=== PATIENT | female | born 1985 | race Hispanic/Latino ===

== ENCOUNTER 2016-11-01 19:27 | Emergency (ER) | payer BC ==
[2016-11-01 20:10] VITALS: BP 134/74; PULSE 74; RESP 16; TEMP 98.8; O2SAT 100
[2016-11-01 21:20] LABS: BASO # 0.1 K/uL (0.0-0.2); BASO % 0.4 % (0.0-2.0); EOS # 0.1 K/uL (0.0-0.7); EOS % 0.8 % (0.0-4.0); HEMATOCRIT 40.9 % (34.0-47.0); LYMPH # 2.3 K/uL (1.0-4.3); LYMPH % 16.1 % (20.0-40.0); MEAN CORPUSCULAR HEMOGLOBIN 30.7 pg (27.0-31.0); MEAN CORPUSCULAR HGB CONC 34.1 g/dL (33.0-37.0); MEAN PLATELET VOLUME 9.6 fl (7.2-11.7); MONO # 0.8 K/uL (0.0-0.8); MONO % 5.5 % (0.0-10.0); NEUT % 77.2 % (50.0-75.0); RED CELL DISTRIBUTION WIDTH 12.6 % (11.5-14.5); WHITE BLOOD COUNT 14.3 K/uL (4.8-10.8)
[2016-11-01 21:24] LABS: RBC URINE 4 /hpf (0-3); URINE BACTERIA FEW (<OCC); URINE BILIRUBIN NEGATIVE (NEGATIVE); URINE BLOOD LARGE (NEGATIVE); URINE COLOR STRAW (YELLOW); URINE GLUCOSE (UA) NEG (Normal); URINE KETONE TRACE mg/dL (NEGATIVE); URINE LEUKOCYTE ESTERASE NEG Leu/uL (Negative); URINE PROTEIN NEGATIVE (NEGATIVE); URINE UROBILINOGEN 0.2-1.0 mg/dL (0.2-1.0); WBC URINE < 1 /hpf (0-5)
[2016-11-01 21:28] LABS: ALB/GLOB RATIO 1.3 (1.0-2.1); ALKALINE PHOSPHATASE 47 U/L (38-126); ALT/SGPT 43 U/L (9-52); AST/SGOT 27 U/L (14-36); BILIRUBIN,TOTAL 0.4 mg/dl (0.2-1.3); BLOOD UREA NITROGEN 9 mg/dl (7-17); CALCIUM 9.6 mg/dL (8.4-10.2); CARBON DIOXIDE 25 mmol/L (22-30); CHLORIDE 104 mmol/L (98-107); GFR AFRICAN-AMERICAN > 60; GLUCOSE,RANDOM 102 mg/dL (65-105); SODIUM 140 mmol/l (132-148); TOTAL PROTEIN 7.6 G/DL (6.3-8.2)
[2016-11-01] MEDS ORDERED: Sodium Chloride 0.9% 1,000 ML IV STA (21:47)
--- NOTE | 2016-11-02 00:18 | ED PDOC ---
HPI: Abdomen Time Seen by Provider: 11/01/16 20:46 Chief Complaint (Nursing): Abdominal Pain Chief Complaint (Provider): vaginal bleeding History Per: Patient History/Exam Limitations: no limitations Location Of Pain/Discomfort: RLQ, LLQ Quality Of Discomfort: Cramping Additional Complaint(s): 31yo F in Ed for eval of vaginal cramping and bleeding x 2d 10 weeks . . no fever chills N/V. pt obgyn is alan, appt is for next week saturday. Past Medical History Reviewed: Historical Data, Nursing Documentation, Vital Signs Vital Signs: Last Vital Signs Temp 98.8 F 11/01/16 20:08 Pulse 74 11/01/16 20:08 Resp 16 11/01/16 20:08 BP 134/74 11/01/16 20:08 Pulse Ox 100 11/01/16 20:08 - Medical History PMH: No Chronic Diseases - Family History Family History: States: No Known Family Hx - Allergies Allergies/Adverse Reactions: Allergies Allergy/AdvReac Type Severity Reaction Status Date / Time No Known Allergies Allergy Verified 11/01/16 20:08 Review of Systems ROS Statement: Except As Marked, All Systems Reviewed And Found Negative Constitutional: Negative for: Fever, Chills Gastrointestinal: Positive for: Abdominal Pain. Negative for: Nausea, Vomiting Genitourinary Female: Positive for: Vaginal Discharge, Vaginal Bleeding, Pelvic Pain Physical Exam - Reviewed Nursing Documentation Reviewed: Yes Vital Signs Reviewed: Yes - Physical Exam Appears: Positive for: Non-toxic, No Acute Distress, Uncomfortable Head Exam: Positive for: ATRAUMATIC, NORMAL INSPECTION, NORMOCEPHALIC Skin: Positive for: Normal Color, Warm, DRY Cardiovascular/Chest: Positive for: Regular Rate, Rhythm Respiratory: Positive for: CNT, Normal Breath Sounds Gastrointestinal/Abdominal: Positive for: Normal Exam, Bowel Sounds, Soft Back: Positive for: Normal Inspection Extremity: Positive for: Normal ROM Neurologic/Psych: Positive for: Alert, Oriented - Laboratory Results Result Diagrams: 11/01/16 21:00 11/01/16 21:00 - ECG O2 Sat by Pulse Oximetry: 100 - CT Scan/US US Other Rad Studies (CT/US): Radiology Report Reviewed (miscarriage) - Progress ED Course And Treament: impression ectopic vs miscarriage US and labs Re-evaluation Time: 00:18 Condition: Re-examined (pt continued to pass clots in Ed-given IV NS fluid bolus. ) Medical Decision Making Medical Decision Making: US reults: [facility] Preliminary Radiology Report Call: [phone] assistance Online chat: [email or web address] Patient Name: SANDRA SWAIN (Age): 1985 31 Gender: F Date of Exam: 11/01/2016 Referring Physician: Eilzabeth Garza PA-C # of Images: 49 Ordered As: US OB TRANSVAGINAL Page 1 of 2 EXAM: US First Trimester, Transabdominal CLINICAL HISTORY: 31 years old, female; Signs and symptoms; Lmp or gestational age (in weeks): 04/2017; Other: Heavy bleeding, cramping; ; Additional info: 10week abd pain and bleeding TECHNIQUE: Real-time transabdominal obstetrical ultrasound of the maternal pelvis and a first trimester with image documentation. COMPARISON: No relevant prior studies available. FINDINGS: Gestation: No intrauterine gestational sac. Uterus/cervix: Endometrium: 1.4 cm in thickness, heterogeneous. Closed cervix. Ovaries: Normal ovaries. No adnexal masses. Free fluid: No significant free fluid. IMPRESSION: 1. No intrauterine gestation. DDX: Early IUP, missed , ectopic . 2. Thickened, heterogeneous endometrium. RPOC not excluded. 3. Incidental/non-acute findings are described above. PT given copies of all labs, advised to f.u with appt on Saturday and have Beta HCG repeated in 3d. pt stable understands dx Disposition - Clinical Impression Clinical Impression: Threatened - Patient ED Disposition Is Patient to be Admitted: No Counseled Patient/Family Regarding: Studies Performed, Diagnosis, Need For Followup - Disposition Referrals: Freddy Alan MD [Staff Provider] - Disposition: Routine/Home Disposition Time: 00:20 Condition: STABLE Instructions: Spontaneous Miscarriage (ED)
--- NOTE | 2016-11-02 11:30 | US ---
HISTORY: 10week abd pain and bleeding COMPARISON: None available. TECHNIQUE: Was fast FINDINGS: UTERUS: Measures 10.3 x 4.9 cm. Normal in size and appearance. No fibroid or other mass lesion seen. ENDOMETRIUM: Measures 15.6 mm in diameter. The normally up closed endometrial wall contains fluid and debris. No organized gestational sac, yolk sac or pole identified. CERVIX: No cervical abnormality identified. RIGHT OVARY: Measures 2.1 x 2.6 cm. No solid mass. Normal flow. LEFT OVARY: Measures 1.7 x 3.1 cm. No solid mass. Normal flow. FREE FLUID: No significant free fluid noted. OTHER FINDINGS: None. IMPRESSION: Thickened irregular endometrium containing fluid and debris. Retained products of conception should be considered in the appropriate clinical setting. Concordant results (preliminary interpretation) provided by [facility]. Procedure Completed: 23:46. Preliminary ([facility]) Report: Dictated and Authenticated: 00:05. Final Interpretation: 11:28. November 02, 2016.
== END 2016-11-02 00:30 | disposition home or self-care (01) ==
LOC: H.ER 19:27
DX: O20.0 Threatened abortion (principal); O26.891 Other specified pregnancy related conditions, first trimester
CPT/HCPCS: 76817; 80053; 81003; 84702; 85025; 86850; 86900; 99282; J7040

== ENCOUNTER 2018-06-08 08:57 | Emergency (ER) | payer BC ==
--- NOTE | 2018-06-08 13:15 | OBHP ---
Datetime: 06/08/2018 13:08 IP Adm Impression: , intrauterine ; No Active Labor IP Admit Plan: Observation/Evaluation Admit Comment, IP Provider: Patient is a 2 para 0 at 23 weeks gestation patient reports havi ng some vaginal spotting this morning. Patient states she went to awaiting last night noticed pinkish tinge on the toilet paper patient reports good movement no leakage of fluid. care oth erwise unremarkable Past medical history none past surgical history none No known drug allergies Surgical history none Social history denies alcohol tobacco use Review of systems patient denies headache chest pain shortness of breath palpitations nausea vomit ing diarrhea heat or cold intolerance easy bruisability musculoskeletal or neurological complaints Intrauterine at 23 weeks vaginal spotting Observation External monitor Sterile speculum exam scant pinkish discoloration noted Cervix long closed posterior Patient follow-up this week for appointment Pelvic rest Pelvic Type - PN: Adequate Extremities - PN: Normal Abdomen - PN: Normal Back - PN: Normal Breast - PN: Normal Lungs - PN: Normal Heart - PN: Normal Thyroid - PN: Normal Neurologic - PN: Normal HEENT - PN: Normal General - PN: Normal Presentation-Admit: Vertex FHR - Baseline A Provider: 145 Gestation - Est Wks by US: 23.0 Pool Provider: Negative EGA AdmitDate IP: 23.3 Vital Signs Provider: Reviewed IP Chief Complaint: Vaginal bleeding NICHD Variability Prov Fetus A: Moderate 6-25bpm NICHD Accel Fetus A IP Provider: [id number] NICHD Decel Fetus A IP Provider: None Dilatation, Provider: o Effacement, Provider: o Station, Provider: -2 Genitourinary Exam: Normal DTRs - PN: Normal
[2018-06-08 14:45] VITALS: BP 110/63; PULSE 90; RESP 18; TEMP 98.5; O2SAT 96
== END 2018-06-08 10:25 | disposition home or self-care (01) ==
LOC: H.EROB2 08:57
DX: O26.852 Spotting complicating pregnancy, second trimester (principal); Z3A.23 23 weeks gestation of pregnancy